=== PATIENT | male | born 1940 | race American Indian/Alaskan Native ===

== ENCOUNTER 2021-04-08 11:36 | Emergency (ER) | payer MEDICARE, MEDICAID ==
[~2021-04-08] VITALS: Ht 177.8 cm; Wt 100.0 kg
--- NOTE | 2021-04-08 14:23 | NUR ---
PATIENT RECEIVED IN BED 14.SON AT BEDSIDE.
[2021-04-08 14:46] LABS: BASOPHILS % (AUTO) 0.4 % (0-1); EOSINOPHILS % (AUTO) 0.5 % (0-6); HEMATOCRIT 36.3 % (42.0-52.0); HEMOGLOBIN 12.3 g/dl (14.0-17.9); LYMPHOCYTES # (AUTO) 1.1 X10'3 (1.1-4.8); LYMPHOCYTES % (AUTO) 14.5 % (21-51); MEAN CORPUSCULAR HGB CONC 33.7 g/dL (33.0-36.5); MEAN PLATELET VOLUME 8.7 FL (7.4-10.4); MONOCYTES # (AUTO) 0.8 X10'3 (0-0.9); MONOCYTES % (AUTO) 11.1 % (2-12); NEUTROPHILS # (AUTO) 5.5 X10'3 (1.8-7.7); NEUTROPHILS % (AUTO) 73.5 % (42-75); PLATELET COUNT 234 X10'3 (140-440); RED BLOOD COUNT 4.22 X10'6 (4.70-6.10); RED CELL DISTRIBUTION WIDTH 14.2 % (11.5-14.5); WHITE BLOOD COUNT 7.5 X10'3 (4.5-11.0)
[2021-04-08 15:36] LABS: ALANINE AMINOTRANSFERASE 30 U/L (12-78); ALBUMIN/GLOBULIN RATIO 0.7 (1.1-1.5); ALKALINE PHOSPHATASE 168 IU/L (46-116); ANION GAP 9 (8-16); ASPARTATE AMINO TRANSFERASE 14 U/L (10-37); BILIRUBIN,TOTAL 0.5 MG/DL (0.1-1.0); BLOOD UREA NITROGEN 13 MG/DL (7-18); BUN/CREATININE RATIO 15.1 (5.4-32.0); CALCIUM 9.4 MG/DL (8.5-10.1); CHLORIDE 98 MMOL/L (99-107); CREATININE 0.86 MG/DL (0.60-1.10); GLUCOSE 180 MG/DL (70-104); SODIUM 139 MMOL/L (135-145); TOTAL CARBON DIOXIDE 31.7 MMOL/L (24-32); TOTAL PROTEIN 7.5 G/DL (6.4-8.2); eGFR 86 ML/MIN
--- NOTE | 2021-04-08 16:35 | NUR ---
patient to ct.
[2021-04-08] MEDS ORDERED: HYDROcodone/acetaminophen 10/325mg tab PO ONE (17:15)
--- NOTE | 2021-04-08 17:38 | NUR ---
PATIENT'S FAMILY AT BEDSIDE, REQUESTED [facility], LINING MACHINE TENDER MADE AWARE.ALSO STILL WAITING FOR [facility] TO PRINT A PRESCRIPTION FOR [facility].
[2021-04-08] MEDS ORDERED: CEPH500C81 PO (17:47)
[2021-04-08] MEDS ORDERED: HYDR-3972 PO (17:47)
--- NOTE | 2021-04-08 18:01 | NUR ---
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
--- NOTE | 2021-04-08 18:52 | NUR ---
ASSUMED CARE OF PATIENT. IS AT BEDSIDE. PT IS READY FOR DISCHARGE BUT WE ARE TRYING TO FIND A WAY TO TRANSPORT PT BACK HOME. [facility] HAS NO DRIVERS AT PRESENT. AND NEEDS A RIDE HOME WELL.
[2021-04-08 21:35] VITALS: BP 129/74
== END 2021-04-08 20:21 | disposition home or self-care (01) ==
LOC: EDBD 11:36 → ER 11:36
DX: S32.030A Wedge compression fracture of third lumbar vertebra, initial encounter for closed fracture (principal); L03.115 Cellulitis of right lower limb; M79.604 Pain in right leg; G89.29 Other chronic pain; M79.89 Other specified soft tissue disorders; M54.50 Low back pain, unspecified; W19.XXXA Unspecified fall, initial encounter; Y93.89 Activity, other specified; Y92.89 Other specified places as the place of occurrence of the external cause; Y99.8 Other external cause status
CPT/HCPCS: 36415; 72131; 73700; 80053; 85025; 93971; 99285